=== PATIENT | female | born 1970 | race Caucasian/White ===

== ENCOUNTER 2018-01-06 03:21 | Inpatient (IN) | payer OTHER ==
--- NOTE | 2018-01-06 03:27 | PDOC ---
History of Present Illness - General Chief Complaint: Lightheaded Stated Complaint: VERTIGO Time Seen by Provider: 01/06/18 03:27 History Source: Patient, Spouse () Exam Limitations: No Limitations - History of Present Illness Initial Comments: Pt is a 47 yo F, with PMH of labyrinthitis (~10 years ago) and pancreatitis, presents with nausea, vomiting, and vertigo since a few hours before coming to the ER, which awoke her from sleep. The vertigo is worsened by sitting up from lying position. The pt has had multiple episodes of NBNB vomiting prior to arriving to the ER. For the past few days, she has also had frontal sinus pressure and clear rhinorrhea, which she attributed to allergies. Pt denies any fevers/chills, tinnitus or hearing changes from baseline, vision changes, headache, syncope, chest pain, palpitations, SOB, abdominal pain, urinary symptoms, diarrhea/constipation, or leg swelling. She states these symptoms are similar to the last time she was diagnosed with labyrinthitis. At that time, she was provided meclizine, which she took for about 1 week, and she never had vertigo again until this point. She cannot recall which tests were done by ENT at during follow-up visits. Pt smokes cigarettes about 1ppd, occasional alcohol use, no other drug use. No family history of labyrinthitis or migraines. 01/06/18 05:08 01/08/18 20:08 Past History - Travel Traveled outside of the country in the last 30 days: No Close contact w/someone who was outside of country & ill: No - Past Medical History Allergies/Adverse Reactions: Allergies Allergy/AdvReac Type Severity Reaction Status Date / Time ciprofloxacin [From Cipro] Allergy Itching Verified 01/06/18 03:26 ciprofloxacin HCl Allergy Itching Verified 01/06/18 03:26 [From Cipro] Opioids - Morphine Analogues Allergy abdominal Verified 01/06/18 03:26 pain Penicillins Allergy Rash Verified 01/06/18 03:26 Home Medications: Ambulatory Orders Ibuprofen [Motrin -] 800 mg PO TID 07/23/14 Naproxen [Naprosyn -] 500 mg PO BID 07/23/14 Lipase/Protease/Amylase [Tanja Martinez 36,000 Units Capsule] 2 cap PO TID 01/06/18 Meclizine HCl 25 mg PO DAILY #14 tablet 01/06/18 Ondansetron HCl [Zofran] 4 mg PO DAILY PRN #14 tablet 01/06/18 - Surgical History Cholecystectomy: Yes - Immunization History Immunization Up to Date: Yes - Suicide/Smoking/Psychosocial Hx Smoking History: Never smoked Have you smoked in the past 12 months: No Number of Cigarettes Smoked Daily: 10 Information on smoking cessation initiated: No Hx Alcohol Use: No Drug/Substance Use Hx: No Substance Use Type: None Review of Systems - Review of Systems Able to Perform ROS?: Yes Is the patient limited British proficient: No Constitutional: Yes: Weight Stable. No: Chills, Diaphoresis, Fever, Loss of Appetite, Night Sweats, Weakness HEENTM: Yes: Nose Congestion (congestion, clear rhinorrhea, and mild sinus pressure x1 wk.). No: Blurred Vision, Recent change in vision, Double Vision, Ear Pain, Tinnitus, Hearing Loss (no change from baseline), Throat Swelling, Difficulty Swallowing Respiratory: No: Cough, Orthopnea, Shortness of Breath Cardiac (ROS): No: Chest Pain, Edema, Irregular Heart Rate, Lightheadedness, Palpitations, Syncope, Chest Tightness ABD/GI: Yes: Nausea, Vomiting. No: Abdominal Distended, Constipated, Diarrhea, Poor Appetite, Poor Fluid Intake, Indigestion, Abdominal cramping : No: Burning, Dysuria, Frequency, Flank Pain, Incontinence, Urgency Musculoskeletal: No: Back Pain, Joint Pain, Neck Pain Integumentary: No: Bruising, Rash Neurological: Yes: Dizziness. No: Headache, Numbness, Paresthesia, Seizure, Tremors, Weakness, Unsteady Gait, Ataxia Psychiatric: No: Sleep Pattern Change, Change in Appetite Endocrine: No: Intolerance to Cold, Intolerance to Heat, Increased Urine, Unexplained Weight Loss Hematologic/Lymphatic: No: Anemia, Blood Clots, Easy Bleeding, Easy Bruising All Other Systems: Reviewed and Negative *Physical Exam - Vital Signs Last Vital Signs Temp Pulse Resp BP Pulse Ox 97.6 F 89 18 134/86 99 01/06/18 03:26 01/06/18 03:26 01/06/18 03:26 01/06/18 03:26 01/06/18 03:26 - Physical Exam General Appearance: Yes: Nourished, Appropriately Dressed, Apparent Distress ( Pt actively vomiting upon arrival (NBNB). Asking to be lying down, as sitting up induces vertigo.) HEENT: positive: EOMI, HARI, Normal ENT Inspection, Normal Voice, Symmetrical, TMs Normal, Pharynx Normal, Hearing Grossly Normal. negative: Scleral Icterus ( R), Scleral Icterus (L), Pharyngeal Erythema, Tonsillar Exudate, Tonsillar Erythema, Nasal Congestion, Rhinorrhea (no active congestion/rhinorrhea on exam) , Sinus Tenderness, TM Bulging, TM Dull, TM Erythema Neck: positive: Normal Thyroid. negative: Tender, Trachea midline, Rigid, Supple, Lymphadenopathy (R), Lymphadenopathy (L) Respiratory/Chest: positive: Lungs Clear, Normal Breath Sounds. negative: Chest Tender, Respiratory Distress, Accessory Muscle Use Cardiovascular: positive: Regular Rhythm, Regular Rate, S1, S2. negative: Edema , JVD, Murmur Vascular Pulses: Carotid (R): 4+, Carotid (L): 4+ Gastrointestinal/Abdominal: positive: Normal Bowel Sounds, Flat, Soft. negative : Tender, Organomegaly, Pulsatile Mass, Distended, Guarding, Rebound Rectal Exam: positive: deferred Lymphatic: negative: Adenopathy, Tenderness Musculoskeletal: positive: Normal Inspection. negative: CVA Tenderness Extremity: positive: Normal Capillary Refill, Normal Inspection, Normal Range of Motion, Pelvis Stable. negative: Tender, Delayed Capillary Refill, Pedal Edema Integumentary: positive: Normal Color, Dry, Warm. negative: Jaundice, Clammy, Diaphoresis, Rash Neurologic: positive: manager freelance II-XII NML intact, Fully Oriented, Alert, Normal Response, Motor Strength 5/5, Other (vertigo induced with sitting up.). negative: Normal Mood/Affect (Pt slightly agitated, vertigo easily induced with position change), EOM Palsy, Facial Droop, Numbness, Sensory Deficit, Finger to Nose, Confused ED Treatment Course - LABORATORY CBC & Chemistry Diagram: 01/08/18 05:30 01/08/18 05:30 Medical Decision Making - Medical Decision Making Pt was seen at bedside, also seen by Dr. Watson. Pt presenting with nausea, vomiting, and vertigo since a few hours before coming to the ER, which awoke her from sleep. Pt has PMH of labyrinthitis (~10 years ago). She was provided meclizine, which she took for about 1 week, and she never had vertigo again until this point. She cannot recall which tests were done by ENT at that time/ during follow-up visits. She denies any tinnitus or vision changes. For the past few days, she has also had frontal sinus pressure and clear rhinorrhea, which she attributed to allergies. PE showed fluid in TMs, no erythema. Mild pharyngeal erythema with no exudate. Considering labyrinthitis vs benign positional vertigo vs otolith. Ordered CBC, CMP, lipase, beta-hcg. Provided 4 mg IV zofran, 25 mg Meclizine, 1 L NS, and 5 mg Valium for symptomatic relief (pt had active vomiting on presentation). Lab-work WNL. Beta-hcg negative. Will continue to evaluate for symptomatic relief. 01/06/18 05:01 Pt says nausea has subsided and has had no vomiting since administration of zofran and meclizine. Pt states vertigo is improved but still persists. Will send meclizine and zofran to pt pharmacy. 01/06/18 06:16 Providing additional 25 mg meclizine and 10 mg Reglan for continuing vertigo. Will be signing patient out to morning team who will reassess. 01/06/18 06:[address] Hernandez. Prescriptions sent to pharmacy and discharge paperwork prepared. Dr. Hernandez will reassess. 01/06/18 07:09 *DC/Admit/Observation/Transfer Diagnosis at time of Disposition: Vertigo - Discharge Dispostion Condition at time of disposition: Stable Decision to Admit order: No - Prescriptions - Referrals - Patient Instructions - Post Discharge Activity
[2018-01-06] MEDS ORDERED: ONDANSETRON 4 MG/2 ML VIAL IVPUSH ONE (03:44)
[2018-01-06] MEDS ORDERED: MECLIZINE HCL 25 MG TABLET (FP) ONE ×2 (03:44→06:53)
[2018-01-06] MEDS ORDERED: MECLIZINE HCL 25 MG TABLET (FP) PO ONE ×3 (03:44→11:16)
[2018-01-06] MEDS ORDERED: ONDANSETRON 4 MG/2 ML VIAL ONE (03:45)
[2018-01-06 03:48] LABS: BASO % 1.3 % (0-2.0); EOS % 1.3 % (0-4.5); HEMATOCRIT 42.8 % (32.4-45.2); HEMOGLOBIN 14.1 GM/dL (10.7-15.3); LYMPH % 26.8 % (8-40); MCH 30.8 pg (25.7-33.7); MCHC 33.1 g/dl (32.0-36.0); MEAN CELL VOLUME 93.3 fl (80-96); MEAN PLT VOLUME 10.1 fl (7.5-11.1); MONO % 6.1 % (3.8-10.2); NEUT % 64.5 % (42.8-82.8); PLATELET COUNT 179 K/MM3 (134-434); RBC 4.59 M/mm3 (3.60-5.2)
--- NOTE | 2018-01-06 03:50 | PDOC ---
Attending Attestation - Resident Resident Name: MarcialOdalys - ED Attending Attestation I have performed the following: I have examined & evaluated the patient, The case was reviewed & discussed with the resident, I agree w/resident's findings & plan, Exceptions are as noted - HPI HPI: 01/06/18 03:48 47yo F hx vertigo/labrynthitis that responds to meclizine, pancreatitis presents to the ED with room spinning dizziness a/w nausea and vomiting since waking up 2 hours ago. Pt has had 3 episodes of NBNB emesis. Vertigo is worse with all head movement, especially sitting up. Denies headache. Has had rhinorrhea and frontal sinus pressure for the last week. No fevers. States this feels exactly like her previous episode of vertigo. Denies blurry vision, fevers , CP, SOB, abd pain, urinary sxs, LE edema, focal weakness/numbness. No tx tried. - Physicial Exam PE: 01/06/18 05:06 agree with resident exam - Medical Decision Making 01/06/18 05:06 47yo F hx vertigo p/w peripheral vertigo, possibly triggered by recent URI sxs. No headache, pt is nonfocal otherwise. Plan to treat symptomatically (IVF, meclizine, zofran, valium PO) and reassess. 01/06/18 06:48 Pt reports significant improvement in nausea, no vomiting in ED States modest improvement in dizziness but still has room spinning when she moves her head Will dose meclizine, and add reglan IV and another liter of fluids 01/06/18 07:09 Signed out to day attending for reassessment/dispo
[2018-01-06] MEDS ORDERED: SODIUM CHLORIDE 1,000 ML IV STA ×2 (03:53→06:45)
[2018-01-06 04:12] LABS: ALK PHOS 55 U/L (45-117); ANION GAP 9 MMOL/L (8-16); BILIRUBIN,TOTAL 0.2 mg/dL (0.2-1); BLOOD UREA NITROGEN 13 mg/dL (7-18); CHLORIDE 108 mmol/L (98-107); CO2 25 mmol/L (21-32); CREATININE 0.6 mg/dL (0.55-1.3); GLUCOSE,RANDOM 116 mg/dL (74-106); LIPASE 163 U/L (73-393); POTASSIUM 3.7 mmol/L (3.5-5.1); SGOT/AST 10 U/L (15-37); SGPT/ALT 21 U/L (13-61); SODIUM 142 mmol/L (136-145); TOT PROT 6.9 g/dl (6.4-8.2)
[2018-01-06] MEDS ORDERED: diazePAM 5 MG TABLET PO ONE ×2 (04:34→14:52)
[2018-01-06] MEDS ORDERED: diazePAM 5 MG TABLET ONE (04:40)
[2018-01-06] MEDS ORDERED: METOCLOPRAMIDE HCL 10 MG TABLET (FP) PO ONE (06:30)
[2018-01-06] MEDS ORDERED: METOCLOPRAMIDE HCL INJECTION 10 MG/2 ML VIAL IVPUSH ONE ×2 (06:47→11:17)
[2018-01-06] MEDS ORDERED: METOCLOPRAMIDE HCL INJECTION 10 MG/2 ML VIAL ONE ×2 (06:53→11:46)
--- NOTE | 2018-01-06 07:08 | PDOC ---
*Physical Exam - Vital Signs Last Vital Signs Temp Pulse Resp BP Pulse Ox 97.6 F 65 20 99/47 L 100 01/06/18 07:03 01/06/18 07:03 01/06/18 07:03 01/06/18 07:03 01/06/18 07:03 - Physical Exam Comments: 01/06/18 07:39 GENERAL: Awake, alert, and fully oriented, in no acute distress HEAD: No signs of trauma, normocephalic, atraumatic EYES: EOMI, sclera anicteric, conjunctiva clear ENT: oropharynx clear without exudates. Moist mucosa NECK: Normal ROM, supple LUNGS: No distress, speaks full sentences, clear to auscultation bilaterally HEART: Regular rate and rhythm, normal S1 and S2, no murmurs, rubs or gallops, peripheral pulses normal and equal bilaterally. ABDOMEN: Soft, nontender. No guarding, no rebound. No masses EXTREMITIES : Normal inspection, Normal range of motion, no edema. No clubbing or cyanosis. NEUROLOGICAL: Cranial nerves II through XII grossly intact. Normal speech, no focal sensorimotor deficits SKIN: Warm, Dry, normal turgor, no rashes or lesions noted ED Treatment Course - LABORATORY CBC & Chemistry Diagram: 01/06/18 03:30 01/06/18 03:30 - ADDITIONAL ORDERS Additional order review: Laboratory Results 01/06/18 01/06/18 03:30 03:30 Sodium 142 Potassium 3.7 Chloride 108 H Carbon Dioxide 25 Anion Gap 9 BUN 13 Creatinine 0.6 Creat Clearance w eGFR > 60 Random Glucose 116 H Calcium 9.0 Total Bilirubin 0.2 AST 10 L ALT 21 Alkaline Phosphatase 55 Total Protein 6.9 Albumin 4.0 Lipase 163 Serum , Qual Negative 01/06/18 03:30 RBC 4.59 MCV 93.3 MCHC 33.1 RDW 13.0 MPV 10.1 Neutrophils % 64.5 Lymphocytes % 26.8 Monocytes % 6.1 Eosinophils % 1.3 Basophils % 1.3 - Medications Given in the ED: ED Medications Discontinued Medications Generic Name Dose Route Start Last Admin Trade Name Freq PRN Reason Stop Dose Admin Diazepam 5 mg 01/06/18 04:34 01/06/18 04:45 Valium - PO 01/06/18 04:35 5 mg ONCE ONE Administration Sodium Chloride 1,000 mls @ 1,000 mls/hr 01/06/18 03:53 01/06/18 03:56 Normal Saline - IV 01/06/18 04:52 1,000 mls/hr ASDIR STA Administration Meclizine HCl 25 mg 01/06/18 03:44 01/06/18 03:49 Antivert - PO 01/06/18 03:45 25 mg ONCE ONE Administration Meclizine HCl 25 mg 01/06/18 06:30 01/06/18 06:58 Antivert - PO 01/06/18 06:31 25 mg ONCE ONE Administration Metoclopramide HCl 10 mg 01/06/18 06:30 01/06/18 06:58 Reglan - PO 01/06/18 06:31 Not Given ONCE ONE Metoclopramide HCl 10 mg 01/06/18 06:47 01/06/18 06:58 Reglan Injection - IVPUSH 01/06/18 06:48 10 mg ONCE ONE Administration Ondansetron HCl 4 mg 01/06/18 03:44 01/06/18 03:49 Zofran Injection IVPUSH 01/06/18 03:45 4 mg ONCE ONE Administration Medical Decision Making - Medical Decision Making 01/06/18 07:05 Pt signed out by Dr. Ceja In short 47 year old with a history of labrynthitis and pancreatitis who presents with nausea, vomiting and vertigo that started a few hours before coming to the ER and had a history of 2 days of frontal sinus pressure and clear rhinorrhea. ED Course: Patient resting comfortably. Meclizine and reglan administered. Will reassess for improvement. 01/06/18 09:41 Patient reassessed. Feels nauseous, lightheaded and dizzy. Vomited water and bile 30 min ago. Difficulty with EOMI evaluation due to dizziness, intermittently has to close eyes, no nystagmus on exam. Patient requiring assistance to sit up and ambulate to the bathroom due to unsteadiness and dizziness. Since 299 patient has recieved: 4 zofran, 50mg meclizine, 20 reglan, 2L of NS, 5 valium Last medication given - 0645: 25 meclizine, 10 reglan given. 01/06/18 11:58 Meclizine 50, Reglan 10 ordered. Medicine contacted at 10:09, 10:58, 11:46. Patient pending admission. 01/06/18 16:44 Patient admitted to medicine. *DC/Admit/Observation/Transfer Diagnosis at time of Disposition: Vertigo - Discharge Dispostion Disposition: HOME Condition at time of disposition: Improved Decision to Admit order: Yes - Prescriptions - Referrals - Patient Instructions - Post Discharge Activity
[2018-01-06] MEDS ORDERED: SODIUM CHLORIDE 1,000 ML IV SCH (11:30)
--- NOTE | 2018-01-06 13:58 | HP ---
CHIEF COMPLAINT: vertigo/nausea and dizziness PCP: Dr. Tiarra Vega HISTORY OF PRESENT ILLNESS: 47 u/o female with PMH of senorineural hearing loss, vertigo, presents to the ED with a 1 day history of vertigo with about 15 episodes of vomiting since 1 am. Patient states she was abruptly woken up from sleep and felt that there was a jerking motion of the room. Then she had about 15 episodes of vomiting. The last episode of vertigo the patient had was about 9 years ago and states that she saw an ENT who put her on meclizine for which she took this medication for about a week. Of note, patient has had uri symptoms for the past few days- mainly cough,congestion and sinus pressure but no sick contacts at home nor any recent travel. ER course was notable for: (1) 2 L NS, 5 valium, 50 meclizine (2) (3) Recent Travel: none PAST MEDICAL HISTORY: see above PAST SURGICAL HISTORY: cholecystectomy, c section, septoplasty Social History: Smokin-20 cigarettes/day for past 20 years Alcohol:denies Drugs: denies Family History: mother- sensorinueral hearing loss father- bladder cancer Allergies ciprofloxacin [From Cipro] Allergy (Verified 01/06/18 03:26) Itching ciprofloxacin HCl [From Cipro] Allergy (Verified 01/06/18 03:26) Itching Opioids - Morphine Analogues Allergy (Verified 01/06/18 03:26) abdominal pain Penicillins Allergy (Verified 01/06/18 03:26) Rash HOME MEDICATIONS: Home Medications Medication Instructions Recorded Ibuprofen [Motrin -] 800 mg PO TID 07/23/14 Naproxen [Naprosyn -] 500 mg PO BID 07/23/14 Meclizine HCl 25 mg PO DAILY #14 tablet 01/06/18 Ondansetron HCl [Zofran] 4 mg PO DAILY PRN #14 tablet 01/06/18 REVIEW OF SYSTEMS CONSTITUTIONAL: Absent: fever, chills, diaphoresis, generalized weakness, malaise, loss of appetite, weight change HEENT: Absent: rhinorrhea, nasal congestion, throat pain, throat swelling, difficulty swallowing, mouth swelling, ear pain, eye pain, visual changes CARDIOVASCULAR: Absent: chest pain, syncope, palpitations, irregular heart rate, lightheadedness , peripheral edema RESPIRATORY: Absent: cough, shortness of breath, dyspnea with exertion, orthopnea, wheezing, stridor, hemoptysis GASTROINTESTINAL: Present: nausea, vomiting,Absent: abdominal pain, abdominal distension, diarrhea , constipation, melena, hematochezia GENITOURINARY: Absent: dysuria, frequency, urgency, hesitancy, hematuria, flank pain, genital pain MUSCULOSKELETAL: Absent: myalgia, arthralgia, joint swelling, back pain, neck pain SKIN: Absent: rash, itching, pallor HEMATOLOGIC/IMMUNOLOGIC: Absent: easy bleeding, easy bruising, lymphadenopathy, frequent infections ENDOCRINE: Absent: unexplained weight gain, unexplained weight loss, heat intolerance, cold intolerance NEUROLOGIC: Present:dizziness, unsteady gait, Absent: headache, focal weakness or paresthesias, seizure, mental status changes, bladder or bowel incontinence PSYCHIATRIC: Absent: anxiety, depression, suicidal or homicidal ideation, hallucinations. PHYSICAL EXAMINATION Vital Signs - 24 hr 01/06/18 01/06/18 01/06/18 03:26 07:03 08:05 Temperature 97.6 F 97.6 F Pulse Rate 89 Pulse Rate [ 65 Left Radial] Respiratory 18 20 Rate Blood Pressure 134/86 Blood Pressure 99/47 L [Left Arm] O2 Sat by Pulse 99 100 99 Oximetry (%) 01/06/18 12:05 Temperature 97.2 F L Pulse Rate Pulse Rate [ 74 Left Radial] Respiratory 16 Rate Blood Pressure Blood Pressure 92/54 L [Left Arm] O2 Sat by Pulse 97 Oximetry (%) GENERAL: Awake, alert,in distress EYES: Pupils equal, round and reactive to light, extraocular movements intact, sclera anicteric, conjunctiva clear. No lid lag. EARS, NOSE, THROAT: Ears normal, nares patent, oropharynx clear without exudates. Moist mucous membranes. NECK: no JVD appreciated LUNGS: CTA B/L; no rales, rhonchi or wheezing. HEART: Regular rate and rhythm, normal S1 and S2 without murmur, rub or gallop. ABDOMEN: Soft, nontender, not distended, normoactive bowel sounds, no guarding, no rebound, no masses. No hepatomegaly or splenomegaly. MUSCULOSKELETAL: Normal range of motion at all joints. No bony deformities or tenderness. No CVA tenderness. UPPER EXTREMITIES: 2+ pulses, warm, well-perfused. No cyanosis. No clubbing. No peripheral edema. LOWER EXTREMITIES: 2+ pulses, warm, well-perfused. No calf tenderness. No peripheral edema. NEUROLOGICAL: Cranial nerves II-XII intact. Normal speech sensation intact B/L ; 5/5 strength B/L PSYCHIATRIC: Cooperative. Good eye contact. Appropriate mood and affect. SKIN: Warm, dry, normal turgor, no rashes or lesions noted, normal capillary refill. Laboratory Results - last 24 hr 01/06/18 01/06/18 01/06/18 03:30 03:30 03:30 WBC 10.0 RBC 4.59 Hgb 14.1 Hct 42.8 MCV 93.3 MCH 30.8 MCHC 33.1 RDW 13.0 Plt Count 179 MPV 10.1 Absolute Neuts (auto) 6.5 Neutrophils % 64.5 Lymphocytes % 26.8 Monocytes % 6.1 Eosinophils % 1.3 Basophils % 1.3 Nucleated RBC % 0 Sodium 142 Potassium 3.7 Chloride 108 H Carbon Dioxide 25 Anion Gap 9 BUN 13 Creatinine 0.6 Creat Clearance w eGFR > 60 Random Glucose 116 H Calcium 9.0 Total Bilirubin 0.2 AST 10 L ALT 21 Alkaline Phosphatase 55 Total Protein 6.9 Albumin 4.0 Lipase 163 Serum , Qual Negative ASSESSMENT/PLAN: 47 y/o female with PMH of vertigo, sensourineural hearing loss, pancreatitis, presents to the ED with intractable vomiting and vertigo likely being benign positional vertigo. Benign Positional Vertigo: head CT was negative spoke to Dr. Trotter (ENT) who suggested to give 10 of valium -Zofran PRN for nausea -Meclizine 25 TID - Sinusitis: sinus pressure and tenderness present on exam -diphenhydramine and ranitidine PRN Sensorineural Hearing Loss: -f/u as an outpatient
--- NOTE | 2018-01-06 14:23 | PN ---
Teaching Attending Note Name of Resident: Kaitlyn Mederos ATTENDING PHYSICIAN STATEMENT I saw and evaluated the patient. I reviewed the resident's note and discussed the case with the resident. I agree with the resident's findings and plan as documented. SUBJECTIVE: This is a 47 year old woman with a history of vertigo, sensorineural hearing loss who comes to the ED complaining of dizziness, nausea , and vomiting that awoke her from sleep. Symptoms get worse when she goes from lying to sitting. She also reports having cough and sinus congestion/pressure for the last few days. She denies fever. OBJECTIVE: Vital Signs Period Temp Pulse Resp BP Sys/Cabrera Pulse Ox Last 24 Hr 97.2 F-97.6 F 65-89 16-20 92-134/47-86 97-100 HEART: S1S2, RRR LUNGS: Clear ABDOMEN: Soft, non-tender, non-distended, normal BS EXTREMITIES: No edema NEUROLOGICAL: Alert, oriented, normal speech, strength 5/5, sensation intact, finger to nose intact, horizontal nystagmus with gaze to right Laboratory Tests 01/06/18 01/06/18 01/06/18 03:30 03:30 03:30 WBC 10.0 RBC 4.59 Hgb 14.1 Hct 42.8 MCV 93.3 MCH 30.8 MCHC 33.1 RDW 13.0 Plt Count 179 MPV 10.1 Absolute Neuts (auto) 6.5 Neutrophils % 64.5 Lymphocytes % 26.8 Monocytes % 6.1 Eosinophils % 1.3 Basophils % 1.3 Nucleated RBC % 0 Sodium 142 Potassium 3.7 Chloride 108 H Carbon Dioxide 25 Anion Gap 9 BUN 13 Creatinine 0.6 Creat Clearance w eGFR > 60 Random Glucose 116 H Calcium 9.0 Total Bilirubin 0.2 AST 10 L ALT 21 Alkaline Phosphatase 55 Total Protein 6.9 Albumin 4.0 Lipase 163 Serum , Qual Negative Home Medications Medication Instructions Recorded Ibuprofen [Motrin -] 800 mg PO TID 07/23/14 Naproxen [Naprosyn -] 500 mg PO BID 07/23/14 Meclizine HCl 25 mg PO DAILY #14 tablet 01/06/18 Ondansetron HCl [Zofran] 4 mg PO DAILY PRN #14 tablet 01/06/18 ASSESSMENT AND PLAN: This is a 47 year old woman with a history of vertigo, sensorineural hearing loss who presented to the ED with dizziness, nausea, and vomiting that awoke her from sleep. 1. Vertigo likely secondary to vestibular neuritis - NPO - IV fluid - Meclizine, Valium - Zofran as needed - Consider steroids if no improvement - ENT consult if no improvement
--- NOTE | 2018-01-06 14:30 | HP ---
CHIEF COMPLAINT: Vertigo and vomiting PCP: Manjula Rowland ([facility] ) HISTORY OF PRESENT ILLNESS: 47 year old white female with pmhx of vertigo/labyrinthitis, pancreatitis presented to Ed with one day history of intractable dizziness and 15 times vomiting , symptoms started 5 am , she felt room is jerking with any change of position especially when she get up , she did not take any medicine , pt reports 3 days history of sinus congestion and runny nose but she denies any fever, chills , sick contact or recent travel , denies nay numbness , tingling or ringing in her ears. she denies nay headache , blurry vision , ear pain or itchiness but report heridatary history of snsory hearing loss , she denies nay chest pain , cough , sob, abdominal pain , D/C, denies any urinary symptoms. ER course was notable for: (1)IV fluids (2)CBC, BMP (3)Meclizine , zofran Recent Travel:denies PAST MEDICAL HISTORY: as per HPI PAST SURGICAL HISTORY: , cholecystectomy Social History: Smokin ppd Alcohol:denies Drugs: denies Family History: mother side with hearing loss , father with bladder cancer Allergies ciprofloxacin [From Cipro] Allergy (Verified 01/06/18 03:26) Itching ciprofloxacin HCl [From Cipro] Allergy (Verified 01/06/18 03:26) Itching Opioids - Morphine Analogues Allergy (Verified 01/06/18 03:26) abdominal pain Penicillins Allergy (Verified 01/06/18 03:26) Rash HOME MEDICATIONS: Home Medications Medication Instructions Recorded Ibuprofen [Motrin -] 800 mg PO TID 07/23/14 Naproxen [Naprosyn -] 500 mg PO BID 07/23/14 Meclizine HCl 25 mg PO DAILY #14 tablet 01/06/18 Ondansetron HCl [Zofran] 4 mg PO DAILY PRN #14 tablet 01/06/18 REVIEW OF SYSTEMS CONSTITUTIONAL: Absent: fever, chills, diaphoresis, generalized weakness, malaise, loss of appetite, weight change HEENT: Absent: rhinorrhea, nasal congestion, throat pain, throat swelling, difficulty swallowing, mouth swelling, ear pain, eye pain, visual changes CARDIOVASCULAR: Absent: chest pain, syncope, palpitations, irregular heart rate, lightheadedness , peripheral edema RESPIRATORY: Absent: cough, shortness of breath, dyspnea with exertion, orthopnea, wheezing, stridor, hemoptysis GASTROINTESTINAL: Absent: abdominal pain, abdominal distension, nausea, vomiting, diarrhea, constipation, melena, hematochezia GENITOURINARY: Absent: dysuria, frequency, urgency, hesitancy, hematuria, flank pain, genital pain MUSCULOSKELETAL: Absent: myalgia, arthralgia, joint swelling, back pain, neck pain SKIN: Absent: rash, itching, pallor HEMATOLOGIC/IMMUNOLOGIC: Absent: easy bleeding, easy bruising, lymphadenopathy, frequent infections ENDOCRINE: Absent: unexplained weight gain, unexplained weight loss, heat intolerance, cold intolerance NEUROLOGIC: Absent: headache, focal weakness or paresthesias, dizziness, unsteady gait, seizure, mental status changes, bladder or bowel incontinence PSYCHIATRIC: Absent: anxiety, depression, suicidal or homicidal ideation, hallucinations. PHYSICAL EXAMINATION Vital Signs - 24 hr 01/06/18 01/06/18 01/06/18 03:26 07:03 08:05 Temperature 97.6 F 97.6 F Pulse Rate 89 Pulse Rate [ 65 Left Radial] Respiratory 18 20 Rate Blood Pressure 134/86 Blood Pressure 99/47 L [Left Arm] O2 Sat by Pulse 99 100 99 Oximetry (%) 01/06/18 12:05 Temperature 97.2 F L Pulse Rate Pulse Rate [ 74 Left Radial] Respiratory 16 Rate Blood Pressure Blood Pressure 92/54 L [Left Arm] O2 Sat by Pulse 97 Oximetry (%) GENERAL: AAOx3 in NAD , laying down in bed HEAD: NC/AT, EYES: EOMI, Conjunctiva clear, sclera anicteric, no nystagmus , dizziness with any change of position , ENT: moist mucous membrane , ear with no erythema or signs of infection , ear drum pinkish translucent NECK: Supple, no JVD LUNGS: CTA B/L, no crackles no wheezing no accessory muscle use. HEART: RRR, NSR, normal s1, s2, murmur no M/R/G ABDOMEN: Soft, ND, NT, +BS 4 Q, no CVA Tenderness LOWER EXTREMITIES: no edema, +2DP pulse, NEUROLOGICAL: No focal deficit. Normal speech. gait not observed. strength 5/5 upper and lower ext PSYCHIATRIC: Cooperative. Appropriate mood and affect. SKIN: Warm, dry, Laboratory Results - last 24 hr 01/06/18 01/06/18 01/06/18 03:30 03:30 03:30 WBC 10.0 RBC 4.59 Hgb 14.1 Hct 42.8 MCV 93.3 MCH 30.8 MCHC 33.1 RDW 13.0 Plt Count 179 MPV 10.1 Absolute Neuts (auto) 6.5 Neutrophils % 64.5 Lymphocytes % 26.8 Monocytes % 6.1 Eosinophils % 1.3 Basophils % 1.3 Nucleated RBC % 0 Sodium 142 Potassium 3.7 Chloride 108 H Carbon Dioxide 25 Anion Gap 9 BUN 13 Creatinine 0.6 Creat Clearance w eGFR > 60 Random Glucose 116 H Calcium 9.0 Total Bilirubin 0.2 AST 10 L ALT 21 Alkaline Phosphatase 55 Total Protein 6.9 Albumin 4.0 Lipase 163 Serum , Qual Negative CBC, BMP 01/06/18 03:30 01/06/18 03:30 ASSESSMENT/PLAN: 47 year old white female presented with one day history of intractable vomiting and vertigo was admitted to med surg for further evaluation # Vertigo * BPV vs labyrinthitis vs meniere diseases (unlikely) * symptoms started 5 am with any kind of movement , had 2 days of common cold , no fever or chills * had similiar episode 9 years ago improved with miclizine * given Mecilizine in ED will cont 25 TID * Zofran for nausea * ENT consulted recommend 10 mg valium #Acute Sinusitis * facial tenderness , runny nose and post nasal drip * started on cetirzine and dephinhydramin , Ranitidine * no need for abx for now * pt is allergic to penicilline ciprofloxacine # Hereditary sensory hearing loss B/L * F/U out pt # FEN * F: NS 100 CC/hr * E: WNL * N: regular diet # proph * DVTs : LMWH SQ # Dispo : * admit for obs Visit type - Emergency Visit Emergency Visit: Yes ED Registration Date: 01/06/18 Care time: The patient presented to the Emergency Department on the above date and was hospitalized for further evaluation of their emergent condition. - New Patient This patient is new to me today: Yes Date on this admission: 01/06/18 - Critical Care Critical Care patient: No
[2018-01-06 15:18] VITALS: BMI 25.6
[2018-01-06] MEDS: ENOXAPARIN NA (PORCINE) 40 MG/0.4 ML DISP.SYRIN SQ SCH (15:37)
[2018-01-06] MEDS: ONDANSETRON 4 MG TABLET PO PRN (17:22)
[2018-01-06] MEDS: SODIUM CHLORIDE 1,000 ML IV SCH (22:22)
[2018-01-06] MEDS: RANITIDINE HCL 150 MG TABLET (FP) PO SCH (22:22)
[2018-01-06] MEDS: SODIUM CHLORIDE NASAL SPRAY 44 ML BOTTLE NS PRN (22:22)
[2018-01-07] MEDS: SODIUM CHLORIDE 1,000 ML IV SCH ×2 (04:09→20:29)
[2018-01-07] MEDS ORDERED: MECLIZINE HCL 25 MG TABLET (FP) PO PRN (06:01)
[2018-01-07 07:57] LABS: HEMATOCRIT 36.5 % (32.4-45.2); HEMOGLOBIN 11.8 GM/dL (10.7-15.3); MCH 30.4 pg (25.7-33.7); MCHC 32.4 g/dl (32.0-36.0); MEAN CELL VOLUME 93.8 fl (80-96); MEAN PLT VOLUME 10.6 fl (7.5-11.1); PLATELET COUNT 133 K/MM3 (134-434); RBC 3.89 M/mm3 (3.60-5.2); RDW 12.6 % (11.6-15.6); WHITE BLOOD COUNT 5.4 K/mm3 (4.0-10.0)
[2018-01-07 08:30] LABS: ANION GAP 6 MMOL/L (8-16); BLOOD UREA NITROGEN 6 mg/dL (7-18); CALCIUM 8.4 mg/dL (8.5-10.1); CHLORIDE 112 mmol/L (98-107); CO2 25 mmol/L (21-32); CREATININE 0.6 mg/dL (0.55-1.3); GLUCOSE,RANDOM 77 mg/dL (74-106); PHOSPHOROUS 3.1 mg/dL (2.5-4.9); POTASSIUM 4.1 mmol/L (3.5-5.1); SODIUM 144 mmol/L (136-145)
[2018-01-07] MEDS: ONDANSETRON 4 MG TABLET PO PRN (09:59)
[2018-01-07] MEDS: SODIUM CHLORIDE NASAL SPRAY 44 ML BOTTLE NS PRN (10:00)
[2018-01-07] MEDS: RANITIDINE HCL 150 MG TABLET (FP) PO SCH ×2 (10:00→21:04)
[2018-01-07] MEDS: ENOXAPARIN NA (PORCINE) 40 MG/0.4 ML DISP.SYRIN SQ SCH (10:00)
[2018-01-07] MEDS ORDERED: diazePAM 5 MG TABLET PO ONE (11:36)
[2018-01-07] MEDS: PSEUDOEPHEDRINE HCL 30 MG TABLET PO SCH ×2 (12:15→20:30)
--- NOTE | 2018-01-07 13:31 | PN ---
Teaching Attending Note Name of Resident: Kaitlyn Mederos ATTENDING PHYSICIAN STATEMENT I saw and evaluated the patient. I reviewed the resident's note and discussed the case with the resident. I agree with the resident's findings and plan as documented. SUBJECTIVE:states she is no longer dizzy at rest, only on ambulation. states she continues to feel very congested. some unsteadiness with walking but overall better than yesterday. had similar episode in the past when she was congested. was treated with increased hydration and meclizine with relief. That episode was not as severe and not hospitalized at that time. has been following ENT in the [place] for hearing loss. was never told she had a low resting HR. and on her fitbit typically reads in [place] 70's. denies CP, SOB, fever, chills, N/V/C/ D OBJECTIVE: Last Vital Signs Temp Pulse Resp BP Pulse Ox 98.3 F 50 L 20 136/70 100 01/07/18 09:55 01/07/18 09:55 01/07/18 09:55 01/07/18 09:55 01/07/18 05:10 General NAD HEENT+ maxillary sinus tenderness, no nystagmus. negative head thrust, no LN CV S1 S2 bradycardic no murmur Lungs CTA B/L no wheezing/rales/rhonchi ASSESSMENT AND PLAN: 47[facility] (congenital) presented to the ER [facility] sudden onset of dizzyness and vomiting with sinus congestion 1. Dizzyness- likely vestibular neuritis vs acute viral labryinthitis- clinically improved however is still dizzy. refused valium last night. agreeable now. will give valium dose now and sudafed for congestion. cont IVF hydration. pt very upset that ENT is unable to see her today. will call for second opinion from other ENT service to see if able to come here today. will also place call out to private ENT for suggestions. HCT negative. PT eval 2. Bradycardia- attempted to see if would respond to light activity but pt unable to do in the bed as she states shes too fatigued. will obtain EKG 3. sensorneural hearing loss 4. DVT ppx- lovenox 5. spoke wtih father present at bedside. very upset that ENT has not already evaluated her. Explained he is unavailable at this time but her case was discussed with recommendations. Appears to be unsatisfied with this. Offered to attempt to get other ENT if able to come evaluate here today but state we only have 2 groups with privileges here. Informed him that we are attempting to relieve her symptoms and determine what could be causing her symptoms. Patient feels satisfied with attempting to reach for 2nd opinion and reach out to her private doctor
--- NOTE | 2018-01-07 14:25 | PN ---
Physical Exam: SUBJECTIVE: Patient seen and examined at bedside. She states that she is still experiencing vertigo symptoms. She feels slightly better with the medications, however, her symptoms have not fully resolved. Overnight she was bradycardic- this am her resting HR was 44 and after walking around her HR reached 57. She is not having any visual changes or headaches. She was still complaining of congestion, however, after giving her the sudafed her symptoms improved. she denies any CP/SOB/N/V. OBJECTIVE: Vital Signs Period Temp Pulse Resp BP Sys/Cabrera Pulse Ox Last 24 Hr 97.7 F-98.6 F 48-60 20-20 96-136/48-70 100-100 GENERAL: The patient is awake, alert, in slight distress . EYES: PERRL, extraocular movements intact, sclera anicteric, conjunctiva clear. No ptosis. NECK: no JVD appreciated LUNGS:CTA B/L; no rales, rhonchi or wheezing HEART: Bradycardic, S1, S2 without murmur, rub or gallop. ABDOMEN: Soft, nontender, nondistended, normoactive bowel sounds, no guarding, no rebound, no hepatosplenomegaly, no masses. EXTREMITIES: 2+ pulses, warm, well-perfused, no edema. NEUROLOGICAL: Cranial nerves II through XII grossly intact. Normal speech,; gait observed- patient needed to hold onto the charles at some point PSYCH: Normal mood, normal affect. SKIN: Warm, dry, normal turgor, no rashes or lesions noted Laboratory Results - last 24 hr 01/07/18 01/07/18 07:15 07:15 WBC 5.4 RBC 3.89 Hgb 11.8 Hct 36.5 MCV 93.8 MCH 30.4 MCHC 32.4 RDW 12.6 Plt Count 133 L D MPV 10.6 Sodium 144 Potassium 4.1 Chloride 112 H Carbon Dioxide 25 Anion Gap 6 L BUN 6 L Creatinine 0.6 Creat Clearance w eGFR > 60 Random Glucose 77 Calcium 8.4 L Phosphorus 3.1 Magnesium 2.0 Active Medications Generic Name Dose Route Start Last Admin Trade Name Freq PRN Reason Stop Dose Admin Enoxaparin Sodium 40 mg 01/06/18 14:00 01/07/18 10:00 Lovenox - SQ Not Given DAILY LANETTE Sodium Chloride 1,000 mls @ 100 mls/hr 01/06/18 17:28 01/07/18 04:09 Normal Saline - IV 100 mls/hr ASDIR LANETTE Administration Meclizine HCl 25 mg 01/07/18 06:01 01/07/18 09:59 Antivert - PO 25 mg TID PRN Administration VERTIGO Ondansetron HCl 4 mg 01/06/18 14:05 01/07/18 09:59 Zofran - PO 4 mg Q8H PRN Administration NAUSEA Pseudoephedrine HCl 30 mg 01/07/18 11:45 01/07/18 12:15 Sudafed - PO 30 mg Q6HPO LANETTE Administration Ranitidine HCl 150 mg 01/06/18 22:00 01/07/18 10:00 Zantac - PO 150 mg BID LANETTE Administration Sodium Chloride 2 spray 01/06/18 20:26 01/07/18 10:00 [place] Y[place]ank Nasal [place] - NS 2 spray Q12H PRN Administration NASAL CONGESTION ASSESSMENT/PLAN: 47 y/o female with PMH of vertigo, sensourineural hearing loss, pancreatitis, presents to the hospital with intractable vomiting and vertigo now found to be bradycardic. Benign Positional Vertigo: head CT was negative spoke to Dr. Trotter (ENT) who suggested to give 10 of valium or steroids -Zofran PRN for nausea -Meclizine 25 TID - f/u ENT as outpatient Bradycardia: patient found to be bradycardic- could possibly be attributing to some of her vertigo symptoms -cardiology consulted- Dr. Swain -transfer to telemetry -monitor Sinusitis: sinus pressure and tenderness present on exam -diphenhydramine and ranitidine PRN -sudafed Sensorineural Hearing Loss: -f/u as an outpatient DVT PPX: Heparin SQ F/E/N: not on standing fluids monitor electrolytes regular diet transfer to telemetry Problem List - Problems (1) Bradycardia Code(s): R00.1 - BRADYCARDIA, UNSPECIFIED (2) Vertigo Code(s): R42 - DIZZINESS AND GIDDINESS Visit type - Emergency Visit Emergency Visit: Yes ED Registration Date: 01/06/18 Care time: The patient presented to the Emergency Department on the above date and was hospitalized for further evaluation of their emergent condition. - New Patient This patient is new to me today: No - Critical Care Critical Care patient: No
--- NOTE | 2018-01-07 14:36 | CON.CARD ---
Consult Consult Specialty:: Cardiology Reason for Consultation:: Bradycardia - History of Present Illness History of Present Illness: 47yo F wt PMH vertigo and sensorieneural hearing loss (congenital) presented to the ER [facility] sudden onset of dizzyness and vomiting with sinus congestion 1. Dizzyness- likely vestibular neuritis vs acute viral labryinthitis- clinically improved however is still dizzy. refused valium last night. agreeable now. will give valium dose now and sudafed for congestion. cont IVF hydration. pt very upset that ENT is unable to see her today. will call for second opinion from other ENT service to see if able to come here today. will also place call out to private ENT for suggestions. HCT negative. PT eval 2. Bradycardia- attempted to see if would respond to light activity but pt unable to do in the bed as she states shes too fatigued. will obtain EKG 3. sensorneural hearing loss 4. DVT ppx- lovenox Overnight she was bradycardic- this am her resting HR was 44 and after walking around her HR reached 57. She is not having any visual changes or headaches. - History Source History Provided By: Patient, Medical Record - Alcohol/Substance Use Hx Alcohol Use: No - Smoking History Smoking history: Never smoked Have you smoked in the past 12 months: No Aproximately how many cigarettes per day: 10 Home Medications - Allergies Allergies/Adverse Reactions: Allergies Allergy/AdvReac Type Severity Reaction Status Date / Time ciprofloxacin [From Cipro] Allergy Itching Verified 01/06/18 03:26 ciprofloxacin HCl Allergy Itching Verified 01/06/18 03:26 [From Cipro] Opioids - Morphine Analogues Allergy abdominal Verified 01/06/18 03:26 pain Penicillins Allergy Rash Verified 01/06/18 03:26 - Home Medications Home Medications: Ambulatory Orders Ibuprofen [Motrin -] 800 mg PO TID 07/23/14 Naproxen [Naprosyn -] 500 mg PO BID 07/23/14 Lipase/Protease/Amylase [Tanja Martinez 36,000 Units Capsule] 2 cap PO TID 01/06/18 Meclizine HCl 25 mg PO DAILY #14 tablet 01/06/18 Ondansetron HCl [Zofran] 4 mg PO DAILY PRN #14 tablet 01/06/18 Review of Systems - Review of Systems Constitutional: reports: No Symptoms Eyes: reports: No Symptoms HENT: reports: No Symptoms Neck: reports: No Symptoms Cardiovascular: reports: No Symptoms Respiratory: reports: No Symptoms Gastrointestinal: reports: No Symptoms Genitourinary: reports: No Symptoms Breasts: reports: No Symptoms Reported Musculoskeletal: reports: No Symptoms Integumentary: reports: No Symptoms Neurological: reports: Dizziness Endocrine: reports: No Symptoms Hematology/Lymphatic: reports: No Symptoms Psychiatric: reports: No Symptoms Vital Signs: Vital Signs Temperature 98.6 F 01/07/18 14:04 Pulse Rate 60 01/07/18 14:04 Respiratory Rate 20 01/07/18 14:04 Blood Pressure 112/52 L 01/07/18 14:04 O2 Sat by Pulse Oximetry (%) 100 01/07/18 14:00 Constitutional: Yes: Well Nourished, No Distress, Calm Eyes: Yes: WNL, Conjunctiva Clear, EOM Intact HENT: Yes: WNL, Atraumatic, Normocephalic Neck: Yes: WNL, Supple, Trachea Midline Respiratory: Yes: WNL, Regular, CTA Bilaterally Gastrointestinal: Yes: WNL, Normal Bowel Sounds Renal/: Yes: WNL Cardiovascular: Yes: WNL, Regular Rate and Rhythm Musculoskeletal: Yes: WNL Extremities: Yes: WNL Integumentary: Yes: WNL Neurological: Yes: WNL, Alert, Oriented ...Motor Strength: WNL Psychiatric: Yes: WNL, Alert, Oriented - Other Data Labs, Other Data: CBC, BMP 01/07/18 07:15 01/07/18 07:15 Laboratory Tests 01/06/18 01/06/18 01/06/18 03:30 03:30 03:30 WBC 10.0 RBC 4.59 Hgb 14.1 Hct 42.8 MCV 93.3 MCH 30.8 MCHC 33.1 RDW 13.0 Plt Count 179 MPV 10.1 Absolute Neuts (auto) 6.5 Neutrophils % 64.5 Lymphocytes % 26.8 Monocytes % 6.1 Eosinophils % 1.3 Basophils % 1.3 Nucleated RBC % 0 Sodium 142 Potassium 3.7 Chloride 108 H Carbon Dioxide 25 Anion Gap 9 BUN 13 Creatinine 0.6 Creat Clearance w eGFR > 60 Random Glucose 116 H Calcium 9.0 Phosphorus Magnesium Total Bilirubin 0.2 AST 10 L ALT 21 Alkaline Phosphatase 55 Total Protein 6.9 Albumin 4.0 Lipase 163 Serum , Qual Negative 01/07/18 01/07/18 07:15 07:15 WBC 5.4 RBC 3.89 Hgb 11.8 Hct 36.5 MCV 93.8 MCH 30.4 MCHC 32.4 RDW 12.6 Plt Count 133 L D MPV 10.6 Absolute Neuts (auto) Neutrophils % Lymphocytes % Monocytes % Eosinophils % Basophils % Nucleated RBC % Sodium 144 Potassium 4.1 Chloride 112 H Carbon Dioxide 25 Anion Gap 6 L BUN 6 L Creatinine 0.6 Creat Clearance w eGFR > 60 Random Glucose 77 Calcium 8.4 L Phosphorus 3.1 Magnesium 2.0 Total Bilirubin AST ALT Alkaline Phosphatase Total Protein Albumin Lipase Serum , Qual Imaging - Results EKG: Image Reviewed (s bradycardia 38) Problem List - Problems (1) Bradycardia Code(s): R00.1 - BRADYCARDIA, UNSPECIFIED (2) Vertigo Code(s): R42 - DIZZINESS AND GIDDINESS (3) Cast discomfort Code(s): Z47.89 - ENCOUNTER FOR OTHER ORTHOPEDIC AFTERCARE Assessment/Plan Dizzines Vertigo Bradycardia Plan echo 24 holter telemetry will f/u
--- NOTE | 2018-01-07 15:17 | EKG ---
Test Reason : Blood Pressure : / mmHG Vent. Rate : 038 BPM Atrial Rate : 038 BPM P-R Int : 152 ms QRS Dur : 084 ms QT Int : 498 ms P-R-T Axes : 044 017 030 degrees QTc Int : 395 ms MARKED SINUS BRADYCARDIA ABNORMAL ECG NO PREVIOUS ECGS AVAILABLE Confirmed by GLORY GAINES, KATHERINE ([id number]) on 01/07/2018 3:16:58 PM Referred By: [facility] Confirmed By:KATHERINE HOLDER MD
--- NOTE | 2018-01-07 16:34 | ECHO ---
Name: JESSICA HAJI Exam:Adult Echocardiogram Study Date: 01/07/2018 03:05 PM Age: 47 yrs Reason For Study: LV Function Height: 64 in Weight: 149 lb BSA: 1.7 m2 MMode/2D Measurements & Calculations IVSd: 0.66 cm Ao root diam: 2.4 cm LVIDd: 4.5 cm LA dimension: 2.8 cm LVIDs: 3.0 cm LVPWd: 0.67 cm EDV(Teich): 94.3 ml ESV(Teich): 36.0 ml Doppler Measurements & Calculations MV E max sylvia: 92.8 cm/sec TR max sylvia: 222.4 cm/sec MV A max sylvia: 20.7 cm/sec TR max P.8 mmHg MV E/A: 4.5 MV dec time: 0.18 sec Procedure A two-dimensional transthoracic echocardiogram with color flow and Doppler was performed. Left Ventricle The left ventricular size, thickness and function are normal. The left ventricular ejection fraction is normal. Left Ventricular Filling pattern is normal for age. The left ventricular wall motion is twan l. Right Ventricle The right ventricle is normal in size and function. Atria Normal left and right atrial size and function. The atrial septum is aneurysmal. Mitral Valve The mitral valve is normal in structure and function. No significant mitral valve stenosis. There is trace to mild mitral regurgitation. Tricuspid Valve The tricuspid valve is normal in structure and function. There is no tricuspid stenosis. There is mil d tricuspid regurgitation. Right ventricular systolic pressure is normal. Aortic Valve The aortic valve is not well visualized. No hemodynamically significant valvular aortic stenosis. No aortic regurgitation is present. Pulmonic Valve The pulmonic valve is not well visualized. There is no pulmonic valvular stenosis. There is no pulmon ic valvular regurgitation. Great Vessels The aortic root is normal size. Pericardium/Pleura There is no pericardial effusion. Interpretation Summary The left ventricular size, thickness and function are normal The left ventricular ejection fraction is normal. The left ventricular wall motion is normal. The right ventricle is normal in size and function. There is trace to mild mitral regurgitation. There is mild tricuspid regurgitation. Right ventricular systolic pressure is normal. The atrial septum is aneurysmal. Left Ventricular Filling pattern is normal for age. The aortic valve is not well visualized. MD Dylan Bond 01/07/2018 04:34 PM
[2018-01-07] MEDS ORDERED: ONDANSETRON 4 MG TABLET PO PRN (20:15)
[2018-01-07] MEDS: MECLIZINE HCL 25 MG TABLET (FP) PO PRN (20:29)
[2018-01-08] MEDS: SODIUM CHLORIDE NASAL SPRAY 44 ML BOTTLE NS PRN (01:00)
[2018-01-08] MEDS: PSEUDOEPHEDRINE HCL 30 MG TABLET PO SCH ×4 (01:00→19:30)
[2018-01-08 06:13] LABS: HEMOGLOBIN 12.3 GM/dL (10.7-15.3); MCH 30.9 pg (25.7-33.7); MCHC 33.2 g/dl (32.0-36.0); MEAN PLT VOLUME 10.5 fl (7.5-11.1); PLATELET COUNT 137 K/MM3 (134-434); RBC 3.97 M/mm3 (3.60-5.2); RDW 12.8 % (11.6-15.6); WHITE BLOOD COUNT 6.1 K/mm3 (4.0-10.0)
[2018-01-08] MEDS: SODIUM CHLORIDE 1,000 ML IV SCH ×2 (06:18→20:49)
[2018-01-08] MEDS: MECLIZINE HCL 25 MG TABLET (FP) PO PRN ×2 (06:53→20:59)
[2018-01-08 07:09] LABS: ANION GAP 7 MMOL/L (8-16); BLOOD UREA NITROGEN 9 mg/dL (7-18); CALCIUM 8.3 mg/dL (8.5-10.1); CHLORIDE 111 mmol/L (98-107); CO2 26 mmol/L (21-32); CREATININE 0.6 mg/dL (0.55-1.3); GLUCOSE,RANDOM 81 mg/dL (74-106); POTASSIUM 4.5 mmol/L (3.5-5.1); SODIUM 144 mmol/L (136-145)
--- NOTE | 2018-01-08 08:25 | PN ---
Physical Exam: SUBJECTIVE: Patient seen and examined walking in the hallway this morning. She states she is feeling a little bit better but still having some symptoms of vertigo and is also having some continued visual disturbances. Her HR went down into the 30's last night, however, her latest HR was 57. However, she denies any CP/SOB/N/V. OBJECTIVE: Vital Signs Period Temp Pulse Resp BP Sys/Cabrera Pulse Ox Last 24 Hr 97.4 F-98.6 F 48-64 16-20 104-136/52-70 97-100 GENERAL: The patient is awake, alert, walking in the hallways, in no acute distress EYES: no scleral icterus NECK: no JVD appreciated. LUNGS: CTA B/L; no rales, rhonchi or wheezing HEART: Regular rate and rhythm, S1, S2 without murmur, rub or gallop. ABDOMEN: Soft, nontender, nondistended, normoactive bowel sounds, no guarding, no rebound, no hepatosplenomegaly, no masses. EXTREMITIES: 2+ pulses, warm, well-perfused, no edema. NEUROLOGICAL: Cranial nerves II through XII grossly intact. Normal speech, gait observed- patient steady on her feet; however needed to hold on for support at times PSYCH: Normal mood, normal affect. SKIN: Warm, dry, normal turgor, no rashes or lesions noted Laboratory Results - last 24 hr 01/07/18 01/08/18 01/08/18 07:15 05:30 05:30 WBC 6.1 RBC 3.97 Hgb 12.3 Hct 37.0 MCV 93.0 MCH 30.9 MCHC 33.2 RDW 12.8 Plt Count 137 MPV 10.5 Sodium 144 144 Potassium 4.1 4.5 Chloride 112 H 111 H Carbon Dioxide 25 26 Anion Gap 6 L 7 L BUN 6 L 9 Creatinine 0.6 0.6 Creat Clearance w eGFR > 60 > 60 Random Glucose 77 81 Calcium 8.4 L 8.3 L Phosphorus 3.1 Magnesium 2.0 Active Medications Generic Name Dose Route Start Last Admin Trade Name Freq PRN Reason Stop Dose Admin Enoxaparin Sodium 40 mg 01/08/18 10:00 Lovenox - SQ DAILY LANETTE Sodium Chloride 1,000 mls @ 100 mls/hr 01/07/18 20:15 10/25/18 06:18 Normal Saline - IV 100 mls/hr ASDIR LANETTE Administration Meclizine HCl 25 mg 01/07/18 20:15 01/08/18 06:53 Antivert - PO 25 mg Q8H PRN Administration VERTIGO Ondansetron HCl 4 mg 01/07/18 20:15 Zofran - PO Q8H PRN NAUSEA Pseudoephedrine HCl 30 mg 01/08/18 00:00 01/08/18 06:17 Sudafed - PO 30 mg Q6HPO LANETTE Administration Ranitidine HCl 150 mg 01/07/18 22:00 01/07/18 21:04 Zantac - PO 150 mg BID LANETTE Administration Sodium Chloride 2 spray 01/07/18 20:15 01/08/18 01:00 [place] Mereta Nasal Mereta - NS 2 spray Q12H PRN Administration NASAL CONGESTION ASSESSMENT/PLAN: 47 y/o female with PMH of vertigo, sensourineural hearing loss, pancreatitis, presents to the hospital with intractable vomiting and vertigo, visual disturbances now found to be bradycardic. Benign Positional Vertigo: head CT was negative spoke to Dr. Trotter (ENT) who suggested to give 10 of valium or steroids -getting MRI of head/neck to further evaluate for any vestibular disturbances given patients dizziness and vision changes -Zofran PRN for nausea -Meclizine 25 TID -TSH and lipid panel pending -attempted to get records from patients [facility] at [facility], however, was unsuccessful Bradycardia: patient found to be in sinus bradycardia- could possibly be attributing to some of her vertigo symptoms -echo done- normal -cardiology consulted- recs appreciated -holter monitor in place for 24 hours -awaiting results of holter Sinusitis: sinus pressure and tenderness present on exam -diphenhydramine and ranitidine PRN -sudafed Sensorineural Hearing Loss: -f/u as an outpatient DVT PPX: Heparin SQ F/E/N: not on standing fluids monitor electrolytes regular diet Problem List - Problems (1) Bradycardia Code(s): R00.1 - BRADYCARDIA, UNSPECIFIED (2) Vertigo Code(s): R42 - DIZZINESS AND GIDDINESS Visit type - Emergency Visit Emergency Visit: Yes ED Registration Date: 01/07/18 Care time: The patient presented to the Emergency Department on the above date and was hospitalized for further evaluation of their emergent condition. - New Patient This patient is new to me today: No - Critical Care Critical Care patient: No
[2018-01-08] MEDS: RANITIDINE HCL 150 MG TABLET (FP) PO SCH ×2 (09:00→20:59)
[2018-01-08] MEDS: ENOXAPARIN NA (PORCINE) 40 MG/0.4 ML DISP.SYRIN SQ SCH (09:00)
--- NOTE | 2018-01-08 09:05 | PN ---
Progress Note, Physician Chief Complaint: Pt A&Ox3; no dizziness, SOB, or chesat pain. History of Present Illness: Pt is a 47 yo white F, with PMH of labyrinthitis (~10 years ago) and pancreatitis, presents with nausea, vomiting, and vertigo since a few hours before coming to the ER, which awoke her from sleep. She denies any tinnitus or vision changes. For the past few days, she has also had frontal sinus pressure and clear rhinorrhea, which she attributed to allergies. She states these symptoms are similar to the last time she was diagnosed with labyrinthitis. At that time, she was provided meclizine, which she took for about 1 week, and she never had vertigo again until this point. She cannot recall which tests were done by ENT at during follow-up visits. 01/06/18 05:08 - Current Medication List Current Medications: Active Medications Enoxaparin Sodium (Lovenox -) 40 mg SQ DAILY [facility] Last Admin: 01/08/18 09:00 Dose: Not Given Sodium Chloride (Normal Saline -) 1,000 mls @ 100 mls/hr IV ASDIR [facility] Last Admin: 01/08/18 06:18 Dose: 100 mls/hr Meclizine HCl (Antivert -) 25 mg PO Q8H PRN PRN Reason: VERTIGO Last Admin: 01/08/18 06:53 Dose: 25 mg Ondansetron HCl (Zofran -) 4 mg PO Q8H PRN PRN Reason: NAUSEA Pseudoephedrine HCl (Sudafed -) 30 mg PO Q6HPO [facility] Last Admin: 01/08/18 06:17 Dose: 30 mg Ranitidine HCl (Zantac -) 150 mg PO BID [facility] Last Admin: 01/08/18 09:00 Dose: 150 mg Sodium Chloride ([place]al Hundred -) 2 spray NS Q12H PRN PRN Reason: NASAL CONGESTION Last Admin: 01/08/18 01:00 Dose: 2 spray - Objective Vital Signs: Vital Signs Temperature 98.1 F 01/08/18 05:00 Pulse Rate 57 L 01/08/18 05:00 Respiratory Rate 16 01/08/18 05:00 Blood Pressure 105/56 L 01/08/18 05:00 O2 Sat by Pulse Oximetry (%) 97 01/07/18 21:00 Constitutional: Yes: Well Nourished, Calm Eyes: Yes: WNL HENT: Yes: Nasal Congestion, Other (c/o congestion "in the top of my head" ( chronic)) Cardiovascular: Yes: Bradycardia, S1, S2 Respiratory: Yes: WNL Gastrointestinal: Yes: WNL ...Rectal Exam: Yes: Deferred Genitourinary: No: Anuria Breast(s): Yes: WNL Musculoskeletal: Yes: WNL Extremities: Yes: WNL Edema: No Peripheral Pulses WNL: Yes Integumentary: Yes: WNL Neurological: Yes: WNL Psychiatric: Yes: WNL Labs: CBC, BMP 01/08/18 05:30 01/08/18 05:30 Abnormal Lab Results 01/08/18 05:30 Chloride 111 H Anion Gap 7 L Calcium 8.3 L - ....Imaging Other: Image Reviewed (telemetry: NSR; periods of marked sinus bradycardia ( lowest 37 bpm)) Problem List - Problems (1) Neurosensory deafness Assessment/Plan: 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 Code(s): H90.5 - UNSPECIFIED SENSORINEURAL HEARING LOSS (2) Bradycardia Assessment/Plan: Pt denies syncope. Works out at gym (running 10-30 minutes without chest apin, dizziness, palpitations) and other vigorous exercises 3x/wk. She believes her thyroid is normal (TSH pending). Telemetry: NSR; periods of sinus bradycardia to 37 bpm. Await Holter monitor results. F/u orthostatic VS. ECHO: normal LVEF and chamber sizes; normal RVSP; trae3-mild MR. Pt appears to have asymptomatic sinus bradycardia (no clear association with her nausea, vertigo). She has given the name of her PMD at [facility], and says an extensive hysical exam with several tests was doen recently. If 24 hour Holter monitor is negative today, pt may be followed as an outpatient from cardiac standpoint. As discussed with pt, she will be further evaluated with long-term loop recorder. Code(s): R00.1 - BRADYCARDIA, UNSPECIFIED (3) Vertigo Code(s): R42 - DIZZINESS AND GIDDINESS (4) Chronic sinusitis Code(s): J32.9 - CHRONIC SINUSITIS, UNSPECIFIED (5) Smokes cigarettes Assessment/Plan: /2-1 ppd for many years; she is craving cigarettes now. Agrees to try nicotine patch; will start 21 mg/day. Code(s): F17.210 - NICOTINE DEPENDENCE, CIGARETTES, UNCOMPLICATED (6) Migraine headache Assessment/Plan: associated monthly with her menstrual cycle. Code(s): G43.909 - MIGRAINE, UNSP, NOT INTRACTABLE, WITHOUT STATUS MIGRAINOSUS (7) Hypocalcemia Assessment/Plan: normal albumin f/u level Code(s): E83.51 - HYPOCALCEMIA
[2018-01-08 12:23] LABS: CHOLESTEROL 135 mg/dL (50-200); HDL CHOLESTEROL 35 mg/dL (40-60); TRIGLYCERIDES 90 mg/dL (0-150)
[2018-01-08] MEDS ORDERED: PT OWN MED DRAWER 7, Y5N ONE ×2 (12:50→18:47)
[2018-01-08] MEDS: NICOTINE 21 MG/24 HOURS TOPICAL PATCH TD SCH (12:57)
--- NOTE | 2018-01-08 13:44 | PN ---
Teaching Attending Note Name of Resident: Kaitlyn Mederos ATTENDING PHYSICIAN STATEMENT I saw and evaluated the patient. I reviewed the resident's note and discussed the case with the resident. I agree with the resident's findings and plan as documented. SUBJECTIVE:states she no longer having "room spinning sensation". dizzy on ambulation and relates it to that she is having difficulty seeing distant objects which she reports as new. is not experiencing any blurred vision at the moment sitting and can see the clock well but is unable to read the board across the room. congestion feels better. denies CP, SOB, fever, chills, N/V/C/ D or palpitations States she exercises with moderate intensity without symptoms. states she typically sees her HR in the 70's. no cardiac workup in the past. denies hiking in wooded areas or any tick exposure OBJECTIVE: Last Vital Signs Temp Pulse Resp BP Pulse Ox 98.0 F 38 L 18 134/67 100 01/08/18 09:00 01/08/18 09:48 01/08/18 09:00 01/08/18 09:48 01/08/18 09:00 General NAD HEENTno sinus tenderness, no nystagmus. CV S1 S2 bradycardic no murmur Lungs CTA B/L no wheezing/rales/rhonchi ASSESSMENT AND PLAN: 47yo F wtih PMH vertigo and sensorieneural hearing loss (congenital) presented to the ER wtih sudden onset of dizzyness and vomiting with sinus congestion 1. Dizzyness- likely vestibular neuritis vs acute viral labryinthitis- clinically improved. slightly dizzy on exertion which could be perhaps due to being near sighted and supposed to be wearing corrective lenses which she is not complaint with. states she feels much better and does not have room spinning sensation. ambulated 150ft with PT. does not want BZD as suggested by ENT as they make her too sleepy. Other ENT group that has privledges here is also not able to evaluate the patient. however pt is clinically improved. will attempt to call private ENT to notify of symptoms and see what workup has been done. however since pt is clinically improved do not think further workup is warranted. 2. Bradycardia-HR 48-60 on the monitor. no significant pauses. no heart block on EKG. Echo WNL. check TSH, lipid panel and lyme testing. holter monitor placed yesterday. Cardio evaluated. as per cardio may benefit from loop recorder as not symptoms now improved and was likely related to problem #1. 3. sensorneural hearing loss 4. DVT ppx- lovenox 5. Pt wants to go home. will need to see if holter can be analayzed today, if so and nothing significant pauses seen can go home today.
[2018-01-09] MEDS: PSEUDOEPHEDRINE HCL 30 MG TABLET PO SCH ×3 (00:11→12:57)
[2018-01-09] MEDS: SODIUM CHLORIDE NASAL SPRAY 44 ML BOTTLE NS PRN (06:13)
[2018-01-09 07:07] LABS: HEMATOCRIT 40.1 % (32.4-45.2); HEMOGLOBIN 13.2 GM/dL (10.7-15.3); MCH 30.5 pg (25.7-33.7); MEAN CELL VOLUME 92.4 fl (80-96); MEAN PLT VOLUME 10.8 fl (7.5-11.1); PLATELET COUNT 138 K/MM3 (134-434); RBC 4.33 M/mm3 (3.60-5.2); RDW 12.6 % (11.6-15.6); WHITE BLOOD COUNT 6.1 K/mm3 (4.0-10.0)
[2018-01-09 07:49] LABS: ANION GAP 8 MMOL/L (8-16); BLOOD UREA NITROGEN 10 mg/dL (7-18); CALCIUM 9.1 mg/dL (8.5-10.1); CHLORIDE 105 mmol/L (98-107); CO2 26 mmol/L (21-32); CREATININE 0.7 mg/dL (0.55-1.3); GLUCOSE,RANDOM 79 mg/dL (74-106); POTASSIUM 4.3 mmol/L (3.5-5.1); SODIUM 140 mmol/L (136-145)
[2018-01-09] MEDS: ENOXAPARIN NA (PORCINE) 40 MG/0.4 ML DISP.SYRIN SQ SCH (09:41)
[2018-01-09] MEDS: RANITIDINE HCL 150 MG TABLET (FP) PO SCH (09:41)
[2018-01-09] MEDS: NICOTINE 21 MG/24 HOURS TOPICAL PATCH TD SCH (09:41)
[2018-01-09] MEDS: MECLIZINE HCL 25 MG TABLET (FP) PO PRN (09:43)
--- NOTE | 2018-01-09 10:55 | HOL ---
Hook-up date: 2018-01-07 15:46:00 Duration: 23:38:00 Test Indications: BRADYCARDIA Medications: 92999 QRS complexes * Ventricular ectopics which represent % of total QRS comp. 35 Supraventricular ectopics which represent <1 % of total QRS comp. * Paced QRS complexs which represent % of total QRS comp. * % of Time Classified as Noise VENTRICULAR ECTOPY * Isolated * Bigeminal Cycles * Couplets * Runs * Beats in Runs * Beats LONGEST at * BPM at :: -- * Beats FASTEST at * BPM at :: -- SUPRAVENTRICULAR ECTOPY 30 Isolated 0 Couplets 0 Runs 0 Beats in Runs * Beats LONGEST at * BPM at :: -- * Beats FASTEST at * BPM at :: -- HEART RATES 36 MIN at 09:53:35 2018-01-08 52 AVG 91 MAX at 14:54:41 2018-01-08 LONGEST RR 1.728 secs at 02:32:45 2018-01-08 The baseline rhythm is sinus bradycardia. Premature atrial complexes . Minumum rate 36 bpm (01/08/18, at 9:50AM). Maximum rate 91bpm. No significant pauses. No arrhythmias, no ventricular ectopy. No diary entries. Confirmed by SHAILA DHALIWAL MD ([id number]) on 01/09/2018 10:55:25 AM Referred By: MIGNON DILLON DR Overread By: SHAILA DHALIWAL MD
[2018-01-09 14:15] VITALS: BP 99/66; PULSE 78; TEMP 97.7
--- NOTE | 2018-01-09 18:16 | DS ---
Physical Exam: SUBJECTIVE: Patient seen and examined OBJECTIVE: Vital Signs Period Temp Pulse Resp BP Sys/Cabrera Pulse Ox Last 24 Hr 97.7 F-98.2 F 50-78 15-20 99-124/56-66 98-100 PHYSICAL EXAM GENERAL: The patient is awake, alert, and fully oriented, in no acute distress. HEAD: Normal with no signs of trauma. EYES: PERRL, extraocular movements intact, sclera anicteric, conjunctiva clear. ENT: Ears normal, nares patent, oropharynx clear without exudates, moist mucous membranes. NECK: Trachea midline, full range of motion, supple. LUNGS: Breath sounds equal, clear to auscultation bilaterally, no wheezes, no crackles, no accessory muscle use. HEART: Regular rate and rhythm, S1, S2 without murmur, rub or gallop. ABDOMEN: Soft, nontender, nondistended, normoactive bowel sounds, no guarding, no rebound, no hepatosplenomegaly, no masses. EXTREMITIES: 2+ pulses, warm, well-perfused, no edema. NEUROLOGICAL: Cranial nerves II through XII grossly intact. Normal speech, gait not observed. PSYCH: Normal mood, normal affect. SKIN: Warm, dry, normal turgor, no rashes or lesions noted. LABS Laboratory Results - last 24 hr 01/09/18 01/09/18 06:15 06:15 WBC 6.1 RBC 4.33 Hgb 13.2 Hct 40.1 MCV 92.4 MCH 30.5 MCHC 33.0 RDW 12.6 Plt Count 138 MPV 10.8 Sodium 140 Potassium 4.3 Chloride 105 Carbon Dioxide 26 Anion Gap 8 BUN 10 Creatinine 0.7 Creat Clearance w eGFR > 60 Random Glucose 79 Calcium 9.1 HOSPITAL COURSE: Date of Admission:01/07/18 Date of Discharge: 01/09/18 Discharge Summary Reason For Visit: VERTIGO, VOMITING Condition: Improved - Instructions Diet, Activity, Other Instructions: You were admitted to the hospital for vertigo, nausea and vomiting. You had a CT scan of you head which was normal. We gave you meclizine for the vertigo, zofran for your nausea and we also gave you antihistamine, sudafed, for your nasal congestion. You began to have a slowing of your heart rate so we consulted the cardiology team to come and evaluate you. You were placed on a telemetry floor and we performed an echocardiogram of your heart which was normal. We placed a holter monitor on you and monitored your heart rate/rhythm for any abnormalities for 24 hours. There were no findings of significant concern on the holter reading. Please resume all home medications in addition please take: -Meclizine 25 mg per day or 12.5 two times per day -Zofran 4 mg as needed for nausea Referrals: -we advise you to see your PCP, or make an appointment at [facility] within one week -we advise you to make an appointment with the ENT, Dr. Artie Oliveira, within two-three weeks -we advise you to make an appointment with the pcb design engineer, Dr. Swain within 1 week * if you continue to have dizziness, nausea, vomiting, or begin to experience any chest pain, shortness of breath please return to the emergency room immediately Referrals: [facility] [place] [Provider Group] Yonathan Swain MD [Staff Physician] - 1 Week Artie Oliveira MD [Staff Physician] - Disposition: HOME - Home Medications Comprehensive Discharge Medication List: Ambulatory Orders Ibuprofen [Motrin -] 800 mg PO TID 07/23/14 Naproxen [Naprosyn -] 500 mg PO BID 07/23/14 Lipase/Protease/Amylase [Tanja Martinez 36,000 Units Capsule] 2 cap PO TID 01/06/18 Meclizine HCl 25 mg PO DAILY #14 tablet 01/06/18 Ondansetron HCl [Zofran] 4 mg PO DAILY PRN #14 tablet 01/06/18 Problem List - Problems (1) Bradycardia Code(s): R00.1 - BRADYCARDIA, UNSPECIFIED (2) Vertigo Code(s): R42 - DIZZINESS AND GIDDINESS
== END 2018-01-09 14:46 | disposition home or self-care (01) | DRG 149 ==
LOC: JER 03:21 → JERBED 12:09 → J5S 14:03 → OBSVTOIN 01-07 15:59 → J4W 01-07 18:20
PROVIDERS: ADMIT Internal Medicine; ATTEND Internal Medicine
DX: H81.10 Benign paroxysmal vertigo, unspecified ear (principal); J32.9 Chronic sinusitis, unspecified; H90.5 Unspecified sensorineural hearing loss; R00.1 Bradycardia, unspecified; E83.51 Hypocalcemia; G43.909 Migraine, unspecified, not intractable, without status migrainosus; F17.210 Nicotine dependence, cigarettes, uncomplicated
CPT/HCPCS: 36415; 70450-TC; 80048; 80053; 80061; 83690; 83721; 83735; 84100; 84443; 84703; 85025; 85027; 86618; 93005; 93010; 93225; 93226; 93306-TC; 97116-GP; 97161-GP; 99285-25; G0378; J7030